=== PATIENT | female | born 1950 | race Caucasian/White ===

== ENCOUNTER → 2017-03-21 | Outpatient (CLI) | payer MEDICARE, OTHER ==
[2017-03-21 08:23] LABS: HEMOGLOBIN 12.9 gm/dl (12.3-15.3); RED BLOOD COUNT 4.35 M/UL (4.00-5.10); WHITE BLOOD COUNT 7.3 K/UL (4.5-11.0)
[2017-03-21 08:52] LABS: BUN/CREATININE RATIO 22 (0-10)
== END ==
LOC: LAB 07:43
PROVIDERS: Emergency Medicine
DX: E03.8 Other specified hypothyroidism (principal); E53.8 Deficiency of other specified B group vitamins; I10 Essential (primary) hypertension; Z98.84 Bariatric surgery status
CPT/HCPCS: 36415; 80053; 82607; 84443; 85027

== ENCOUNTER → 2017-03-28 | Outpatient (CLI) | payer MEDICARE, OTHER | LOC: RAD 19:08 | DX: M25.572 Pain in left ankle and joints of left foot (principal); E03.8 Other specified hypothyroidism; E53.8 Deficiency of other specified B group vitamins; I10 Essential (primary) hypertension; K21.9 Gastro-esophageal reflux disease without esophagitis; M13.861 Other specified arthritis, right knee; Z98.84 Bariatric surgery status; S92.912A Unspecified fracture of left toe(s), initial encounter for closed fracture | CPT/HCPCS: 73630 ==

== ENCOUNTER → 2017-04-04 | Outpatient (CLI) | payer MEDICARE, OTHER | LOC: KOH-I 10:44 | DX: M84.475A Pathological fracture, left foot, initial encounter for fracture (principal); M67.88 Other specified disorders of synovium and tendon, other site | CPT/HCPCS: 73700 ==

== ENCOUNTER 2021-02-13 13:19 | Emergency (ER) | payer MEDICARE, OTHER ==
[~2021-02-13 13:19] MED LIST: ALPRAZOLAM0.5 MG PO; LISINOPRIL-HCT1 EACH PO; NEURONTIN 100100 MG PO; NORCO 5-325 TA1 EACH PO; NORVASC 5 MG TAB5 MG PO; PROTONIX40 MG PO; SYNTHROID150 MCG PO
[2021-02-13] MEDS ORDERED: ENDOCET 5-3251 EACH PO (18:04)
== END 2021-02-13 18:37 | disposition home or self-care (01) ==
LOC: ER1 13:19
DX: S22.089A Unspecified fracture of T11-T12 vertebra, initial encounter for closed fracture (principal); Z23 Encounter for immunization; W19.XXXA Unspecified fall, initial encounter
CPT/HCPCS: 72128; 72131; 72170; 90471; 90715; 99284

== ENCOUNTER → 2021-05-13 | Outpatient (CLI) | payer MEDICARE, OTHER ==
[~2021-05-13] MED LIST changes: +ENDOCET 5-3251 EACH PO
[2021-05-13 13:02] LABS: HEMOGLOBIN 12.2 gm/dl (12.3-15.3); RED BLOOD COUNT 4.48 M/UL (4.00-5.10); WHITE BLOOD COUNT 7.3 K/UL (4.5-11.0)
== END ==
LOC: LAB 10:51
PROVIDERS: Internal Medicine
DX: R53.83 Other fatigue (principal)
CPT/HCPCS: 36415; 85025